=== PATIENT | female | born 1995 | race Caucasian/White ===

== ENCOUNTER 2024-07-16 19:31 | Emergency (ER) | payer MEDICAID, OTHER ==
[~2024-07-16] VITALS: Ht 160 cm; Wt 61.2 kg
[2024-07-16] MEDS ORDERED: ALBU18HF2 INH (20:35)
[2024-07-16 20:54] VITALS: BP 102/59; TEMP 98.3; O2SAT 100
== END 2024-07-16 20:53 | disposition home or self-care (01) ==
LOC: ER 19:39
DX: R06.02 Shortness of breath (principal); R07.89 Other chest pain; Z60.2 Problems related to living alone
CPT/HCPCS: 71045-TC

== ENCOUNTER 2024-10-15 16:47 | Emergency (ER) | payer MEDICAID ==
[~2024-10-15] VITALS: Ht 160 cm; Wt 61.2 kg
[~2024-10-15 16:47] MED LIST: ALBU18HF2 INH
[2024-10-15 17:36] VITALS: TEMP 98.1
[2024-10-15 18:26] LABS: APPEARANCE,URINE CLOUDY (CLEAR); BLOOD, URINE 2+ Ery/uL (NEGATIVE); LEUKOCYTE ESTERASE ,URINE 3+ (NEGATIVE); NITRITE, URINE NEGATIVE (NEGATIVE); UGLUCOSE NEGATIVE (NEGATIVE)
[2024-10-15 18:29] LABS: PREGNANCY TEST URINE QUAL NEGATIVE (NEGATIVE)
[2024-10-15] MEDS ORDERED: ACETAMINOPHEN ES 500 MG TABLET ONE (18:34)
[2024-10-15] MEDS ORDERED: ONDANSETRON 4 MG TAB.RAPDIS ONE (18:34)
[2024-10-15] MEDS: ONDANSETRON HCL 4 MG/5 ML SOLUTION PO ONE (18:35)
[2024-10-15 18:38] LABS: ADD URINE CULTURE YES
[2024-10-15] MEDS: ACETAMINOPHEN ES 500 MG TABLET PO ONE (18:38)
[2024-10-15] MEDS: ONDANSETRON 4 MG TAB.RAPDIS PO ONE (18:38)
[2024-10-15] MEDS ORDERED: CIPR500S2 PO (18:58)
[2024-10-15 19:04] VITALS: BP 105/73; O2SAT 98
[2024-10-15] MEDS ORDERED: CIPR-262 PO (19:19)
[2024-10-17 02:07] LABS: CHLAMYDIA TRACHOMATIS NAA Negative (Negative); NEISSERIA GONORRHOEAE NAA Negative (Negative)
== END 2024-10-15 19:02 | disposition home or self-care (01) ==
LOC: ER 16:51
DX: N39.0 Urinary tract infection, site not specified (principal); M54.9 Dorsalgia, unspecified; R10.32 Left lower quadrant pain; Z60.2 Problems related to living alone
CPT/HCPCS: 99284; 76856; 81001; 87491; 87591; 84703 ×2; Q0162; 87086-TC

== ENCOUNTER 2024-10-24 22:48 | Emergency (ER) | payer MEDICAID ==
[~2024-10-24] VITALS: Ht 157.5 cm; Wt 61.2 kg
[~2024-10-24 22:48] MED LIST changes: +CIPR-262 PO
[2024-10-24 23:51] LABS: APPEARANCE,URINE CLEAR (CLEAR); BLOOD, URINE TRACE-INTA Ery/uL (NEGATIVE); LEUKOCYTE ESTERASE ,URINE NEGATIVE (NEGATIVE); NITRITE, URINE NEGATIVE (NEGATIVE); UGLUCOSE NEGATIVE (NEGATIVE)
[2024-10-25] LABS: PREGNANCY TEST URINE QUAL NEGATIVE (NEGATIVE)
[2024-10-25 00:15] VITALS: BP 102/71; TEMP 98.2; O2SAT 98
[2024-10-25 00:19] LABS: ADD URINE CULTURE YES; SQUAMOUS EPITHELIAL CELL,UR Many /HPF (None Seen)
[2024-10-25] MEDS ORDERED: IBUPROFEN 400 MG TABLET PO ONE (00:30)
== END 2024-10-25 00:15 | disposition home or self-care (01) ==
LOC: ER 22:51
DX: M54.50 Low back pain, unspecified (principal); R11.0 Nausea; R03.0 Elevated blood-pressure reading, without diagnosis of hypertension; J45.909 Unspecified asthma, uncomplicated; Z79.899 Other long term (current) drug therapy
CPT/HCPCS: 81001; 84703-TC; 87086-TC